=== PATIENT | female | born 1940 | race Caucasian/White ===

== ENCOUNTER 2018-05-16 17:43 | Emergency (ER) | payer BC, MEDICARE ==
--- OUTSIDE RECORDS SUMMARY | 2018-05-16 18:00 | XMS REPORT ---
:1940 External Reference #:[id number] Author Organization [facility] Address [address], [address] [place] [address] Phone [phone] Care Team Providers Name Role Phone Missael Lala DO Care Team Information Supply Manager Unavailable Kizzy Pinzon, ENGINEER PROCESS Primary Care Physician Unavailable Payers Type Date Identification Numbers Payment Provider Subscriber Commercial Effective: Policy Number: [id number] Preston Tobar 2015 Expires: 2016 PayID: [id number] [address] [address] [place] [address] Medigap Part B Effective: Policy Number: [employer] Elsie Gould 2016 [id number] PayID: [id number] [address] [address] [place] [address] Problems Date Description Provider Status Onset: 05/25/2017 External constriction of left ring finger, JOSH Bradshaw Active initial encounter Onset: 05/24/2017 Closed fracture of distal end of radius JOSH Bradshaw Active Onset: 05/24/2017 Closed fracture of distal end of ulna JOSH Bradshaw Active Family History Date Family Member(s) Problem(s) Comments Father Kidney Disease Mother Mitral Valve Prolapse Social History Type Date Description Comments Marital Status Occupation Retired Cigarette Use Former Cigarette Smoker 1 Pack SMOKED FOR 15 YEARS BUT Daily QUIT OVER 30 YEARS AGO . ETOH Use Denies alcohol use Recreational Drug Use Denies Drug Use Smoking Patient is a former smoker Daily Caffeine Current Caffeine User Soda and Coffee Exercise Type/Frequency Exercises rarely Allergies, Adverse Reactions, Alerts Date Description Reaction Status Severity Comments 05/24/2017 NKDA active Medications Medication Date Status Form Strength Qnty SIG Indications Ordering Provider Spiriva / Active Capsules 18mcg Inhale The Unknown Handihaler 0000 Contents Of One Capsule Via Handihaler By Mouth Every Day Ventolin HFA / Active Aerosol 108(90Base 8gm inhale two Steve 0000 ) mcg/Act puffs by MD Mariana mouth every 6 hours as needed for shortness of breath. Magnesium Oxide / Active Tablets 400(241.3M Take One Unknown 0000 g) mg Tablet By Mouth Every Day Amitriptyline / Active Tablets 100mg Take One Unknown HCL 0000 Tablet By Mouth AT Bedtime Sumatriptan / Active Tablets 100mg 1 po as Spike, Succinate 0000 needed for Missael migranes. C, DO Multi Vitamin / Active Tablets 1 by mouth Unknown 0000 every day Vitamin D3 / Active Chewtabs 1000Unit chew 1 tab Unknown 0000 by mouth daily for 8 weeks Ibuprofen / Active Capsules 200mg as needed Unknown 0000 Omeprazole / Active Capsules 20mg 1 by mouth Unknown 0000 DR every day Preservision / Active Capsules 2 by mouth Unknown Areds 0000 daily Propranolol HCL / Active Tablets 20mg take one Unknown 0000 tablet by mouth daily Amlodipine / Active Tablets 5mg 1 by mouth Unknown Besylate 0000 every day Excedrin / Active Tablets 250-250-65 1 tab by Unknown Migraine 0000 mg mouth first sign of migraine Hydrocodone-Gagandeep / Hx Tablets 5-325mg Unknown taminophen 0000 - 2016 Vital Signs Date Vital Result Comment 04/17/2018 BP Systolic Sitting Left Arm 110 mmHg BP Diastolic Sitting Left Arm 78 mmHg Heart Rate 73 /min Respiratory Rate 16 /min Height 66.5 inches 5'6.50" Weight 143.00 lb BMI (Body Mass Index) 22.7 kg/m2 BSA (Body Surface Area) 1.74 m2 [place] body weight in kilograms 60 O2 Saturation Level with Exercise 91 % 05/24/2017 BP Systolic Sitting Right Arm 122 mmHg BP Diastolic Sitting Right Arm 73 mmHg Heart Rate 96 /min Height 66.5 inches 5'6.50" Weight 187.00 lb BMI (Body Mass Index) 29.7 kg/m2 BSA (Body Surface Area) 1.95 m2 [place] body weight in kilograms 60 Results Test Date Test Result H/L Range Note Continuous Oximetry 03/27/2018 Oximetry 91 % Low 93-98 1 Fio2 21 21-100 1 Heart Rate 117 BPM 1 Patient Status AMBULATING 1 Continuous Oximetry 03/27/2018 Oximetry 91 % Low 93-98 1 Fio2 21 21-100 1 Heart Rate 78 BPM 1 Patient Status RESTING 1 Patient Position SITTING UP IN BE <SEE NOTE> 1, 2 Laboratory test finding 03/27/2018 NT-proBNP 214.0 pg/mL <450 1 CBC 03/26/2018 White Blood Count 19.9 K/uL High 3.1-10.7 1 Red Blood Count 4.56 M/uL 3.90-5.40 1 Hemoglobin 12.7 gm/dL 11.6-15.8 1 Hematocrit 40.8 % 36.0-46.1 1 Mean Cell Volume 89.5 fl 80.9-99.0 1 Mean Corpuscular HGB 27.9 pg 25.9-32.7 1 Mean Corpuscular HGB Conc 31.1 g/dL 30.8-34.3 1 Platelet Count 463 K/uL High 155-360 1 Red Cell Distri Width %CV 14.2 % 11.7-14.4 1 Mean Platelet Volume 9.3 fL 8.9-12.4 1 Basic Metabolic Panel 03/26/2018 Glucose 135 mg/dL High 74-106 1 BUN 20 mg/dL High 7-18 1 Creatinine 0.7 mg/dL 0.6-1.3 1 Glom Filtration Rate, Estimate >60 mL/min >60 1 If >60 mL/min >60 1, 3 BUN/Creat 28.5 ratio 1 Sodium 134 mmol/L Low 136-145 1 Potassium 4.3 mmol/L 3.5-5.1 1 Chloride 96 mmol/L Low 98-107 1 Carbon Dioxide 31 mmol/L 21-32 1 Anion Gap 7 mEq/L Low 8-16 1 Calcium 8.9 mg/dL 8.5-10.1 1 Laboratory test finding 03/26/2018 Magnesium 2.4 mg/dL 1.8-2.4 1 CBC 03/25/2018 White Blood Count 19.5 K/uL High 3.1-10.7 1 Red Blood Count 4.57 M/uL 3.90-5.40 1 Hemoglobin 12.8 gm/dL 11.6-15.8 1 Hematocrit 41.5 % 36.0-46.1 1 Mean Cell Volume 90.8 fl 80.9-99.0 1 Mean Corpuscular HGB 28.0 pg 25.9-32.7 1 Mean Corpuscular HGB Conc 30.8 g/dL 30.8-34.3 1 Platelet Count 413 K/uL High 155-360 1 Red Cell Distri Width %CV 14.4 % 11.7-14.4 1 Mean Platelet Volume 9.5 fL 8.9-12.4 1 Basic Metabolic Panel 03/25/2018 Glucose 135 mg/dL High 74-106 1 BUN 20 mg/dL High 7-18 1 Creatinine 0.6 mg/dL 0.6-1.3 1 Glom Filtration Rate, Estimate >60 mL/min >60 1 If >60 mL/min >60 1, 4 BUN/Creat 33.3 ratio 1 Sodium 134 mmol/L Low 136-145 1 Potassium 4.2 mmol/L 3.5-5.1 1 Chloride 96 mmol/L Low 98-107 1 Carbon Dioxide 31 mmol/L 21-32 1 Anion Gap 7 mEq/L Low 8-16 1 Calcium 9.1 mg/dL 8.5-10.1 1 Laboratory test finding 03/25/2018 Magnesium 2.4 mg/dL 1.8-2.4 1 Continuous Oximetry 03/24/2018 Oximetry 93 % 93-98 1 O2l/Min 2 L/min 1 Oximetry Delivery N/C 1 Heart Rate 82 BPM 1 Patient Status RESTING 1 Patient Position SITTING UP IN BE <SEE NOTE> 1, 5 Iga Subclasses 03/24/2018 IgA1 262.0 mg/dL 73.2-301.2 1 IgA2 39.5 mg/dL 13.4-97.9 1, 6 Immunoglobulins A/G/M, QN, 03/24/2018 Immunoglobulin 705 mg/dL 700-1600 1 Ser G,Quant,Serum Immunoglobulin A 302 mg/dL 64-422 1 Immunoglobulin M 77 mg/dL 26-217 1 Igg Subclasses (1-4) 03/24/2018 Immunoglobulin G,Quant,Serum 677 mg/dL Low 700-1600 1 Immunoglobulin G Subclass 1 405 mg/dL 248-810 1 Immunoglobulin G Subclass 2 178 mg/dL 130-555 1 Immunoglobulin G Subclass 3 126 mg/dL High 15-102 1 Immunoglobulin G Subclass 4 9 mg/dL 2-96 1, 7 CBC 03/24/2018 White Blood Count 17.8 K/uL High 3.1-10.7 1 Red Blood Count 4.29 M/uL 3.90-5.40 1 Hemoglobin 12.0 gm/dL 11.6-15.8 1 Hematocrit 38.8 % 36.0-46.1 1 Mean Cell Volume 90.4 fl 80.9-99.0 1 Mean Corpuscular HGB 28.0 pg 25.9-32.7 1 Mean Corpuscular HGB Conc 30.9 g/dL 30.8-34.3 1 Platelet Count 442 K/uL High 155-360 1 Red Cell Distri Width %CV 14.4 % 11.7-14.4 1 Mean Platelet Volume 9.6 fL 8.9-12.4 1 Laboratory test finding 03/24/2018 Magnesium 2.4 mg/dL 1.8-2.4 1 Basic Metabolic Panel 03/24/2018 Glucose 132 mg/dL High 74-106 1 BUN 20 mg/dL High 7-18 1 Creatinine 0.6 mg/dL 0.6-1.3 1 Glom Filtration Rate, Estimate >60 mL/min >60 1 If >60 mL/min >60 1, 8 BUN/Creat 33.3 ratio 1 Sodium 135 mmol/L Low 136-145 1 Potassium 4.3 mmol/L 3.5-5.1 1 Chloride 97 mmol/L Low 98-107 1 Carbon Dioxide 33 mmol/L High 21-32 1 Anion Gap 5 mEq/L Low 8-16 1 Calcium 9.0 mg/dL 8.5-10.1 1 Continuous Oximetry 03/24/2018 Oximetry 91 % Low 93-98 1 Fio2 21 21-100 1 Heart Rate 88 BPM 1 Patient Status RESTING 1 Patient Position SITTING UP IN BE <SEE NOTE> 1, 9 Continuous Oximetry 03/24/2018 Oximetry 85 % Low 93-98 1 Fio2 21 21-100 1 Heart Rate 86 BPM 1 Patient Status AMBULATING 1 Patient Position SITTING UP IN BE <SEE NOTE> 1, 10 CBC 03/23/2018 White Blood Count 12.8 K/uL High 3.1-10.7 1 Red Blood Count 4.29 M/uL 3.90-5.40 1 Hemoglobin 12.0 gm/dL 11.6-15.8 1 Hematocrit 38.6 % 36.0-46.1 1 Mean Cell Volume 90.0 fl 80.9-99.0 1 Mean Corpuscular HGB 28.0 pg 25.9-32.7 1 Mean Corpuscular HGB Conc 31.1 g/dL 30.8-34.3 1 Platelet Count 394 K/uL High 155-360 1 Red Cell Distri Width %CV 14.3 % 11.7-14.4 1 Mean Platelet Volume 9.8 fL 8.9-12.4 1 Basic Metabolic Panel 03/23/2018 Glucose 140 mg/dL High 74-106 1 BUN 15 mg/dL 7-18 1 Creatinine 0.6 mg/dL 0.6-1.3 1 Glom Filtration Rate, Estimate >60 mL/min >60 1 If >60 mL/min >60 1, 11 BUN/Creat 25.0 ratio 1 Sodium 135 mmol/L Low 136-145 1 Potassium 4.2 mmol/L 3.5-5.1 1 Chloride 98 mmol/L 98-107 1 Carbon Dioxide 28 mmol/L 21-32 1 Anion Gap 9 mEq/L 8-16 1 Calcium 9.2 mg/dL 8.5-10.1 1 Laboratory test 03/23/2018 Magnesium 2.3 mg/dL 1.8-2.4 1 finding Laboratory test 03/22/2018 Legionella Urinary Negative Negative 1, 12 finding Antigen Blood Culture 03/22/2018 Blood Culture NO GROWTH: FINAL 1, 13 Aerobic <SEE NOTE> Blood Culture Anaerobic NO GROWTH: FINAL <SEE NOTE> 1, 14 Blood Culture 03/22/2018 Blood Culture Aerobic NO GROWTH: FINAL <SEE NOTE> 1, 15 Blood Culture Anaerobic NO GROWTH: FINAL <SEE NOTE> 1, 16 1 COPD EXACERBATION AND PNA 2 SITTING UP IN BED 3 Note: Persistent reduction for 3 months or more in an eGFR <60 mL/min/1.73 m2 defines CKD. Patients with eGFR values >/=60 mL/min/1.73 m2 may also have CKD if evidence of persistent proteinuria is present. The original MDRD equation for estimated GFR is not valid for patients less than 18 years of age. Additional information may be found at www.[facility].org. 4 Note: Persistent reduction for 3 months or more in an eGFR <60 mL/min/1.73 m2 defines CKD. Patients with eGFR values >/=60 mL/min/1.73 m2 may also have CKD if evidence of persistent proteinuria is present. The original MDRD equation for estimated GFR is not valid for patients less than 18 years of age. Additional information may be found at www.[email or web address]. 5 SITTING UP IN BED 6 Performed at: [facility] [id number] Flour Inspector: Reanna Diaz MD, Phone: [phone] Performed at: [facility] [id number] Flour Inspector: Wali Diane MD, Phone: [phone] Performed at: [facility] [address] [id number] Flour Inspector: Reanna Diaz MD, Phone: [phone] Performed at: [facility] [id number] Flour Inspector: Wali Diane MD, Phone: [phone] Note: Persistent reduction for 3 months or more in an eGFR <60 mL/min/1.73 m2 defines CKD. Patients with eGFR values >/=60 mL/min/1.73 m2 may also have CKD if evidence of persistent proteinuria is present. The original MDRD equation for estimated GFR is not valid for patients less than 18 years of age. Additional information may be found at www.[email or web address]. 9 SITTING UP IN BED 10 SITTING UP IN BED 11 Note: Persistent reduction for 3 months or more in an eGFR <60 mL/min/1.73 m2 defines CKD. Patients with eGFR values >/=60 mL/min/1.73 m2 may also have CKD if evidence of persistent proteinuria is present. The original MDRD equation for estimated GFR is not valid for patients less than 18 years of age. Additional information may be found at [email or web address]. 12 Presumptive negative for L. pneumophila serogroup 1 antigen in urine, suggesting no recent or current infection. Legionnaires' disease cannot be ruled out since other serogroups and species may also cause disease. 13 NO GROWTH: FINAL REPORT 14 NO GROWTH: FINAL REPORT 15 NO GROWTH: FINAL REPORT 16 NO GROWTH: FINAL REPORT Procedures Date CPT Code Description Status 06/29/2017 89500 Radiology, Wrist Complete Completed 06/09/2017 73444 Radiology, Wrist Complete Completed 06/01/2017 17080 Radiology, Wrist Complete Completed 06/01/2017 58154 Radiology, Wrist Complete Completed 06/01/2017 13086 Application of Cast short arm Completed 05/24/2017 66251 Radiology, Wrist Complete Completed 05/24/2017 43608 Radiology, Wrist Complete Completed 05/24/2017 59392 Ulnar styloid fracture closed Completed 05/24/2017 29413 Fracture distal radial-closed Completed Encounters Type Date Location Provider CPT E/M Dx Office Visit 05/25/2017 1:30p Orthopaedic Office JOSH Bradshaw [id number] S52.615D S52.572D S60.445A Plan of Care Future Appointment(s):06/07/2018 2:30 pm - [facility]/02/ 2018 - Steve Peña MDJ44.9 Chronic obstructive pulmonary disease, unspecifiedNew Orders:PFT With BronchodilatorComments:Continue with Spiriva and as needed albuterol. Alpha-1 testing done today as well. We ambulated her today and her oxygen saturations maintained at least 89% on room air. She does not need oxygen at this time.Follow up:6 weeks, AM appointment is ok.J18.9 Pneumonia , unspecified [id number] Pulmonary fibrosis, unspecifiedComments: Differentials include sarcoidosis versus MAC versus other ILD. I want to set her up with a bronchoscopy but first I will repeat a chest x-ray and get PFTs to establish a baseline.
--- OUTSIDE RECORDS SUMMARY | 2018-05-16 18:00 | XMS REPORT ---
:1940 External Reference #:[id number] Author Organization [facility] Address [address] [address] Phone [phone] Care Team Providers Name Role Phone Tunde Pinzon MD Care Team Information Teacher Asst Unavailable Kizzy Pinzon NP Primary Care Physician Unavailable Payers Type Date Identification Numbers Payment Provider Subscriber Commercial Effective: Policy Number: BCBS Medicare Manuel Tobar 2016 [id number] Group Number: [id number] [address] [address] PayID: [id number] [place] [address] Problems Date Description Provider Status Onset: 10/15/2010 Migraine Missael Lala DO Active Onset: 10/15/2010 Vitamin D deficiency Missael Lala DO Active Onset: 10/15/2010 Gastroesophageal reflux disease Missael Lala DO Active Onset: 10/15/2010 Headache Missael Lala DO Active Onset: 04/28/2016 Chronic obstructive lung disease Missael Lala DO Active Onset: 10/21/2014 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 Family History Date Family Member(s) Problem(s) Comments Mother due to Age 94 Old Age () Social History Type Date Description Comments Marital Status Lives With Alone Occupation Retired Hand Dominance RIGHT-handed ETOH Use Denies alcohol use Smoking Patient is a former smoker PREVIOUSLY 2 PPD QUIT OVER 30 YEARS AGO Daily Caffeine Consumes on average 2 cups of coffee per day Allergies, Adverse Reactions, Alerts Date Description Reaction Status Severity Comments 11/01/2014 NKDA active 10/21/2014 Ibuprofen inactive Medications Medication Date Status Form Strength Qnty SIG Indications Ordering Provider Propranolol HCL 01/25/20 Active Tablets 20mg 90tabs 1 by G43.909 Digiovanna, 18 mouth Kizzy, every SOAP GRINDER day Montelukast 10/26/19 Active Tablets 10mg 90tabs 1 by J44.9 Digiovanna, Sodium 18 mouth Kizzy, every SOAP GRINDER day J44.1 Goodsense 05/24/2017 Active Tablets 200mg 200tabs 2 tab three Spike, Ibuprofen times a day Missael, DO as needed Spiriva 10/21/2016 Active Capsules 18mcg 90caps 1 puff by J44.9 Digiovanna, Handihaler mouth every Kizzy, SOAP GRINDER d J44.1 Ventolin HFA 03/18/2016 Active Aerosol 108(90Base) 54gm 2 puffs J44.9 Swift, mcg/Act by mouth Derrick, DO four times a day J44.1 Magnesium 04/20/2013 Active Tablets 400(241.3mg) 90tabs Take One E83.40 Spike, Oxide mg Tablet By Missael, Mouth DO Every Day Sumatriptan 06/25/2010 Active Tablets 100mg 9tabs take one G43.909 Digiovanna Succinate tablet by , mouth at Kizzy, onset of SOAP GRINDER migraine, may repeat in two hours if necessary Omeprazole 05/26/2010 Active Capsules 20mg 90caps take one K21.[address] capsule , by mouth Kizzy, every day SOAP GRINDER Multi-Day 09/02/2009 Active Tablets 1 po qd Spike, Vitamins Missael, DO [facility] Vitamin 09/02/2009 Active Capsules 1000Unit 90caps 1 po qd Spike, D3 Missael, DO Antioxidant Active Capsules 1 by Unknown Formula mouth once a day Preservision Active Tablets 1 by Unknown Areds mouth twice a day Prednisone 03/16/2018 Hx Tablets 20mg 10tabs 2 tablets Swift, - by mouth Derrick, 03/21/2018 for 5 DO days Amitriptylin 01/24/2018 Hx Tablets 25mg 120tabs 2 by G43.909 Digiovanna e HCL - mouth , 04/25/2018 daily in Kizzy, the SOAP GRINDER evening Prednisone 12/19/2017 Hx Tablets 20mg 10tabs 2x/day by J44.1 Digiovanna - mouth for , 12/24/2017 5 days Kizzy, with food SOAP GRINDER Azithromycin 12/19/2017 Hx Tablets 250mg 6tabs 2 by J44.1 Digiovanna - mouth on , 12/24/2017 day 1 and Kizzy, 1 by SOAP GRINDER mouth day 2-5 Levaquin 03/18/2016 Hx Tablets 500mg 10tabs 1 by Spike, - mouth Missael, 04/28/2016 every day DO Azithromycin 03/09/2016 Hx Tablets 250mg 6tabs 2 by J06.9 Digiovanna - mouth on , 03/14/2016 day 1 and Kizzy, 1 by SOAP GRINDER mouth day 2-5 Prednisone 03/09/2016 Hx Tablets 20mg 10tabs 2x/day by J06.9 Digiovanna - mouth for , 03/14/2016 5 days Kizzy, SOAP GRINDER Tessalon 10/29/2015 Hx Capsules 200mg 30caps 1 by Spike, - mouth Missael, 12/16/2015 three DO times a day Zithromax 10/22/2015 Hx Tablets 500mg 7tabs 1 by J20.9 Spike, - mouth Missael, 12/16/2015 every day DO Amoxicillin/ 03/18/2015 Hx Tablets 875-125mg 20tabs 1 by 465.9 Digiovanna Clavulanate - mouth , Potassium 03/28/2015 every 12 Kizzy, hours for SOAP GRINDER 10 days Amitriptylin 10/19/2012 Hx Tablets 100mg 90tabs take one G43.909 Digiovanna e HCL - tablet by , 01/24/2018 mouth Kizzy, once SOAP GRINDER daily at bedtime Goodsense Hx Tablets 200mg 2 tab Unknown Ibuprofen - three 07/12/2017 times a day as needed Medications Administered in Office Medication Date Status Form Strength Qnty SIG Indications Ordering Provider Depo Medrol 80 Administered Injection Spike MG 016 DO Missael Immunizations CPT Code Status Date Vaccine Reaction Lot # [id number] Given 10/21/2016 Pneumococcal 23 Immunization Im inj completed, Pt [id number] Adult Or Immunosuppressed tolerated well Patient 03775 Given 10/22/2015 Prevnar 13 Pneumococal Im inj completed, Pt [id number] Conjugate Vaccine tolerated well 02046 Refused 10/03/2017 Influenza Vac, 3 Yrs & Older, Quadrivalent, Split, Im Use Vital Signs Date Vital Result Comment 04/25/2018 Weight 142.00 lb Heart Rate 80 /min BP Systolic 120 mmHg BP Diastolic 70 mmHg Respiratory Rate 18 /min Height 64.5 inches 5'4.50" 04/25/18 SA,DIRECTOR [employer] O2 % BldC Oximetry 93 % Room Air BMI (Body Mass Index) 24.0 kg/m2 03/30/2018 Body Temperature 97.3 F Weight 151.00 lb Heart Rate 64 /min BP Systolic 130 mmHg BP Diastolic 72 mmHg Respiratory Rate 20 /min Height 65 inches 5'5" 07/12/17 SA O2 % BldC Oximetry 92 % BMI (Body Mass Index) 25.1 kg/m2 03/22/2018 Weight 150.00 lb Heart Rate 103 /min BP Systolic 140 mmHg BP Diastolic 90 mmHg Height 65 inches 5'5" 07/12/17 SA O2 % BldC Oximetry 83 % BMI (Body Mass Index) 25.0 kg/m2 03/16/2018 Body Temperature 98.3 F Ibuprofen This Am Weight 153.00 lb Heart Rate 90 /min BP Systolic 150 mmHg BP Diastolic 90 mmHg Respiratory Rate 20 /min Height 65 inches 5'5" 07/12/17 SA O2 % BldC Oximetry 85 % BMI (Body Mass Index) 25.5 kg/m2 02/21/2018 Weight 150.25 lb Heart Rate 76 /min BP Systolic 130 mmHg BP Diastolic 80 mmHg Respiratory Rate 18 /min Height 65 inches 5'5" 07/12/17 SA O2 % BldC Oximetry 91 % Room Air BMI (Body Mass Index) 25.0 kg/m2 01/24/2018 Body Temperature 98.1 F tympanic Weight 154.00 lb Heart Rate 96 /min BP Systolic 130 mmHg BP Diastolic 94 mmHg Respiratory Rate 16 /min Height 65 inches 5'5" 07/12/17 SA O2 % BldC Oximetry 93 % On room air BMI (Body Mass Index) 25.6 kg/m2 12/19/2017 Body Temperature 98.2 F tympanic Weight 154.00 lb Heart Rate 88 /min BP Systolic 134 mmHg BP Diastolic 94 mmHg BP Systolic Recheck 144 mmHg BP Diastolic Recheck 98 mmHg Respiratory Rate 20 /min Height 65 inches 5'5" 07/12/17 O2 % BldC Oximetry 91 % On room air BMI (Body Mass Index) 25.6 kg/m2 10/26/2017 Weight 156.00 lb Heart Rate 108 /min BP Systolic 140 mmHg BP Diastolic 90 mmHg BP Systolic Recheck 132 mmHg BP Diastolic Recheck 88 mmHg Respiratory Rate 16 /min Height 65 inches 5'5" 07/12/17 BMI (Body Mass Index) 26.0 kg/m2 10/03/2017 Weight 158.00 lb Heart Rate 90 /min BP Systolic 180 mmHg BP Diastolic 98 mmHg Respiratory Rate 18 /min Height 65 inches 5'5" 07/12/17 BMI (Body Mass Index) 26.3 kg/m2 09/20/2017 Weight 154.38 lb Heart Rate 84 /min BP Systolic 126 mmHg BP Diastolic 80 mmHg Respiratory Rate 18 /min Height 65 inches 5'5" 07/12/17 BMI (Body Mass Index) 25.7 kg/m2 07/12/2017 Weight 160.25 lb Heart Rate 92 /min 80 Reg BP Systolic 122 mmHg BP Diastolic 76 mmHg BP Systolic Recheck 110 mmHg BP Diastolic Recheck 76 mmHg Respiratory Rate 18 /min Height 65 inches 5'5" 07/12/17 BMI (Body Mass Index) 26.7 kg/m2 05/24/2017 Weight 157.44 lb Heart Rate 80 /min BP Systolic 122 mmHg BP Diastolic 78 mmHg Respiratory Rate 18 /min Height 65 inches 5'5" BMI (Body Mass Index) 26.2 kg/m2 04/25/2017 Weight 159.00 lb Heart Rate 82 /min 80 Reg BP Systolic 116 mmHg BP Diastolic 78 mmHg BP Systolic Recheck 120 mmHg BP Diastolic Recheck 72 mmHg Respiratory Rate 18 /min Height 65 inches 5'5" BMI (Body Mass Index) 26.5 kg/m2 10/21/2016 Weight 158.00 lb Heart Rate 72 /min 72 Reg BP Systolic 138 mmHg BP Diastolic 80 mmHg BP Systolic Recheck 138 mmHg BP Diastolic Recheck 80 mmHg Respiratory Rate 18 /min Height 65 inches 5'5" O2 % BldC Oximetry 91 % Ra BMI (Body Mass Index) 26.3 kg/m2 04/28/2016 Weight 156.00 lb Heart Rate 66 /min 68 Reg BP Systolic 130 mmHg BP Diastolic 80 mmHg BP Systolic Recheck 130 mmHg BP Diastolic Recheck 80 mmHg Respiratory Rate 18 /min 03/18/2016 Weight 155.00 lb Heart Rate 78 /min BP Systolic 130 mmHg BP Diastolic 90 mmHg Respiratory Rate 24 /min Height 64.75 inches 5'4.75" O2 % BldC Oximetry 94 % Ra BMI (Body Mass Index) 26.0 kg/m2 03/09/2016 Body Temperature 98.2 F Weight 158.00 lb Heart Rate 94 /min BP Systolic 146 mmHg L/Reg BP Diastolic 86 mmHg L/Reg Respiratory Rate 17 /min Height 64.75 inches 5'4.75" O2 Saturation Level with Exercise 93 % Ra// BMI (Body Mass Index) 26.5 kg/m2 10/22/2015 Weight 155.00 lb Heart Rate 66 /min 80 Reg BP Systolic 150 mmHg BP Diastolic 82 mmHg BP Systolic Recheck 134 mmHg BP Diastolic Recheck 80 mmHg Respiratory Rate 18 /min Height 64.75 inches 5'4.75" BMI (Body Mass Index) 26.0 kg/m2 04/21/2015 Weight 168.00 lb Heart Rate 66 /min 80 Reg BP Systolic 130 mmHg BP Diastolic 80 mmHg BP Systolic Recheck 124 mmHg BP Diastolic Recheck 80 mmHg Respiratory Rate 18 /min Height 65.25 inches 5'5.25" BMI (Body Mass Index) 27.7 kg/m2 03/18/2015 Body Temperature 97.9 F Weight 159.00 lb Heart Rate 90 /min BP Systolic 122 mmHg BP Diastolic 74 mmHg Height 65.25 inches 5'5.25" O2 % BldC Oximetry 92 % Ra BMI (Body Mass Index) 26.3 kg/m2 10/21/2014 Weight 157.00 lb Heart Rate 72 /min 80 Reg BP Systolic 130 mmHg BP Diastolic 90 mmHg BP Systolic Recheck 124 mmHg BP Diastolic Recheck 86 mmHg Respiratory Rate 18 /min Height 65.25 inches 5'5.25" BMI (Body Mass Index) 25.9 kg/m2 08/26/2014 Weight 157.00 lb Heart Rate 66 /min BP Systolic 130 mmHg BP Diastolic 72 mmHg Respiratory Rate 18 /min 05/09/2014 Weight 157.00 lb Heart Rate 80 /min BP Systolic 122 mmHg BP Diastolic 80 mmHg Respiratory Rate 18 /min Height 65.75 inches 5'5.75" 04/22/2014 Weight 158.00 lb Heart Rate 72 /min BP Systolic 128 mmHg BP Diastolic 80 mmHg Respiratory Rate 18 /min Height 65.75 inches 5'5.75" 04/09/2014 Body Temperature 98.1 F Weight 158.12 lb Heart Rate 88 /min BP Systolic 124 mmHg BP Diastolic 88 mmHg Respiratory Rate 18 /min 10/22/2013 BP Systolic 120 mmHg BP Diastolic 78 mmHg 10/22/2013 Weight 158.00 lb Heart Rate 72 /min 80 Reg BP Systolic 124 mmHg BP Diastolic 70 mmHg Respiratory Rate 18 /min 04/20/2013 BP Systolic 118 mmHg BP Diastolic 78 mmHg 04/20/2013 Weight 156.00 lb Heart Rate 60 /min 72 Reg BP Systolic 110 mmHg BP Diastolic 70 mmHg Respiratory Rate 18 /min 01/09/2013 Body Temperature 97.9 F Weight 159.00 lb Heart Rate 88 /min BP Systolic 126 mmHg BP Diastolic 86 mmHg Respiratory Rate 18 /min O2 % BldC Oximetry 98 % 10/19/2012 BP Systolic 120 mmHg BP Diastolic 80 mmHg 10/19/2012 Weight 157.00 lb Heart Rate 72 /min 72 Reg BP Systolic 118 mmHg BP Diastolic 80 mmHg Respiratory Rate 24 /min 05/23/2012 Weight 149.00 lb Heart Rate 66 /min BP Systolic 122 mmHg BP Diastolic 66 mmHg Respiratory Rate 18 /min 04/18/2012 BP Systolic 124 mmHg BP Diastolic 78 mmHg 04/18/2012 Weight 154.00 lb Heart Rate 72 /min 80 Reg BP Systolic 130 mmHg BP Diastolic 78 mmHg Respiratory Rate 18 /min 01/19/2012 Body Temperature 99.6 F Weight 156.12 lb Heart Rate 96 /min BP Systolic 124 mmHg BP Diastolic 82 mmHg Respiratory Rate 18 /min Height 65.5 inches 5'5.50"/ O2 % BldC Oximetry 93 % 10/19/2011 BP Systolic 110 mmHg BP Diastolic 78 mmHg 10/19/2011 Weight 157.00 lb Heart Rate 60 /min 72 Reg BP Systolic 108 mmHg BP Diastolic 78 mmHg Respiratory Rate 18 /min Height 65.5 inches 5'5.50" 07/26/2011 Weight 155.06 lb Heart Rate 76 /min BP Systolic 128 mmHg BP Diastolic 88 mmHg Respiratory Rate 18 /min Height 65.5 inches 5'5.50" 11 O2 % BldC Oximetry 96 % 06/22/2011 Body Temperature 97.8 F Weight 155.00 lb Heart Rate 90 /min BP Systolic 112 mmHg BP Diastolic 80 mmHg Respiratory Rate 18 /min Height 65.5 inches 5'5.50" 02/20/11 O2 % BldC Oximetry 92 % Ra 06/08/2011 Body Temperature 98.8 F Weight 153.00 lb Heart Rate 100 /min BP Systolic 120 mmHg BP Diastolic 82 mmHg Respiratory Rate 20 /min Height 65.5 inches 5'5.50" O2 % BldC Oximetry 93 % Ra 04/15/2011 BP Systolic 120 mmHg BP Diastolic 70 mmHg 04/15/2011 Weight 154.00 lb Heart Rate 62 /min 72 Reg BP Systolic 122 mmHg BP Diastolic 78 mmHg Respiratory Rate 14 /min Height 65.5 inches 5'5.50" 02/20/2011 Body Temperature 99.5 F Weight 155.00 lb Heart Rate 98 /min BP Systolic 124 mmHg BP Diastolic 76 mmHg Respiratory Rate 19 /min Height 65.5 inches 5'5.50" O2 % BldC Oximetry 93 % Ra 10/15/2010 BP Systolic 120 mmHg BP Diastolic 80 mmHg 10/15/2010 Weight 157.00 lb Heart Rate 78 /min BP Systolic 128 mmHg BP Diastolic 82 mmHg Respiratory Rate 18 /min 07/16/2010 Weight 152.00 lb Heart Rate 66 /min BP Systolic 128 mmHg BP Diastolic 82 mmHg Respiratory Rate 18 /min 06/02/2010 Weight 148.00 lb Heart Rate 78 /min BP Systolic 128 mmHg BP Diastolic 78 mmHg Respiratory Rate 18 /min 05/26/2010 Weight 145.00 lb Heart Rate 82 /min BP Systolic 118 mmHg L/LG BP Diastolic 82 mmHg L/LG Respiratory Rate 17 /min 09/02/2009 Body Temperature 98.6 F Weight 152.00 lb Heart Rate 78 /min BP Systolic 124 mmHg BP Diastolic 68 mmHg Respiratory Rate 24 /min 11/06/2008 Body Temperature 98.0 F Weight 153.00 lb Heart Rate 88 /min BP Systolic 128 mmHg BP Diastolic 80 mmHg Respiratory Rate 14 /min O2 % BldC Oximetry 92 % RM Air 05/01/2008 Body Temperature 98.5 F Weight 147.31 lb Heart Rate 80 /min BP Systolic 106 mmHg BP Diastolic 70 mmHg Respiratory Rate 18 /min O2 % BldC Oximetry 95 % 11/02/2007 Body Temperature 97.5 F Weight 151.00 lb Heart Rate 78 /min BP Systolic 126 mmHg BP Diastolic 66 mmHg Respiratory Rate 18 /min 03/07/2007 Weight 147.00 lb Heart Rate 72 /min BP Systolic 112 mmHg BP Diastolic 70 mmHg Respiratory Rate 18 /min 02/07/2007 BP Systolic 78 mmHg 02/07/2007 Weight 144.00 lb BP Systolic 110 mmHg BP Diastolic 72 mmHg Respiratory Rate 18 /min 01/10/2007 Weight 146.00 lb Heart Rate 72 /min BP Systolic 132 mmHg BP Diastolic 80 mmHg 09/07/2006 Body Temperature 97.0 F Weight 145.00 lb Heart Rate 80 /min BP Systolic 120 mmHg BP Diastolic 84 mmHg Respiratory Rate 16 /min O2 % BldC Oximetry 93 % Room Air @ Rest 08/24/2006 Body Temperature 97.6 F Weight 149.00 lb Heart Rate 72 /min BP Systolic 114 mmHg BP Diastolic 68 mmHg O2 % BldC Oximetry 91 % Recheck 94-95% Ra 09/07/2005 Body Temperature 97.9 F Weight 150.00 lb Heart Rate 96 /min BP Systolic 118 mmHg BP Diastolic 78 mmHg Respiratory Rate 18 /min O2 % BldC Oximetry 97 % Results Test Date Test Result H/L Range Note Laboratory test finding 04/18/2018 Vitamin D 25 Hydroxy 32 ng/mL 30-100 1 Magnesium 2.0 mg/dL 1.5-2.7 Basic (BMP) 04/18/2018 Sodium 137 mmol/L 135-146 2 Potassium 4.0 mmol/L 3.5-5.2 Chloride# 101 mmol/L 97-110 3 Carbon Dioxide 29 mmol/L 24-34 Glucose 99 mg/dL 70-105 BUN 15 mg/dL 6-26 Creatinine 0.7 mg/dL 0.5-1.4 Calcium 9.0 mg/dL 8.5-10.2 Non Sandhya Egfr >60 >60 4 Sandhya Egfr >60 >60 5 Anion Gap 7 mmol/L 5-15 6 CBC With Auto Diff 04/18/2018 WBC 4.8 K/uL 4.1-11.0 RBC 4.75 M/uL 4.00-5.40 Hemoglobin 13.2 gm/dL 12.0-16.0 Hematocrit 40.7 % 36.0-47.0 MCV 85.7 fL 80.0-97.0 MCH 27.8 pg 27.0-32.0 MCHC 32.4 g/dL 32.0-36.0 RDW 16.4 % High 11.5-14.5 PLT Count 275 K/ul 140-400 MPV 7.9 FL 7.1-10.7 Neutrophil 60.5 % 35.0-75.0 Lymphocyte 23.0 % 16.0-52.0 Monocyte 8.7 % 2.0-10.0 Eosinophil 6.9 % High 0.0-5.0 Basophil 0.9 % 0.0-4.0 Abs Neutrophils 2.9 K/uL 2.1-8.0 Abs Lymphocytes 1.1 K/uL 0.8-5.5 Abs Monocytes 0.4 K/uL 0.1-1.0 Abs Eosinophils 0.3 K/uL 0.0-0.5 Abs Basophils 0.0 K/uL 0.0-0.3 Continuous Oximetry 03/27/2018 Oximetry 91 % Low 93-98 7 Fio2 21 21-100 7 Heart Rate 117 BPM 7 Patient Status AMBULATING 7 Continuous Oximetry 03/27/2018 Oximetry 91 % Low 93-98 7 Fio2 21 21-100 7 Heart Rate 78 BPM 7 Patient Status RESTING 7 Patient Position SITTING UP IN BE <SEE NOTE> 7, 8 Laboratory test finding 03/27/2018 NT-proBNP 214.0 pg/mL <450 7 CBC 03/26/2018 White Blood Count 19.9 K/uL High 3.1-10.7 7 Red Blood Count 4.56 M/uL 3.90-5.40 7 Hemoglobin 12.7 gm/dL 11.6-15.8 7 Hematocrit 40.8 % 36.0-46.1 7 Mean Cell Volume 89.5 fl 80.9-99.0 7 Mean Corpuscular HGB 27.9 pg 25.9-32.7 7 Mean Corpuscular HGB Conc 31.1 g/dL 30.8-34.3 7 Platelet Count 463 K/uL High 155-360 7 Red Cell Distri Width %CV 14.2 % 11.7-14.4 7 Mean Platelet Volume 9.3 fL 8.9-12.4 7 Basic Metabolic Panel 03/26/2018 Glucose 135 mg/dL High 74-106 7 BUN 20 mg/dL High 7-18 7 Creatinine 0.7 mg/dL 0.6-1.3 7 Glom Filtration Rate, Estimate >60 mL/min >60 7 If >60 mL/min >60 7, 9 BUN/Creat 28.5 ratio 7 Sodium 134 mmol/L Low 136-145 7 Potassium 4.3 mmol/L 3.5-5.1 7 Chloride 96 mmol/L Low 98-107 7 Carbon Dioxide 31 mmol/L 21-32 7 Anion Gap 7 mEq/L Low 8-16 7 Calcium 8.9 mg/dL 8.5-10.1 7 Laboratory test finding 03/26/2018 Magnesium 2.4 mg/dL 1.8-2.4 7 CBC 03/25/2018 White Blood Count 19.5 K/uL High 3.1-10.7 7 Red Blood Count 4.57 M/uL 3.90-5.40 7 Hemoglobin 12.8 gm/dL 11.6-15.8 7 Hematocrit 41.5 % 36.0-46.1 7 Mean Cell Volume 90.8 fl 80.9-99.0 7 Mean Corpuscular HGB 28.0 pg 25.9-32.7 7 Mean Corpuscular HGB Conc 30.8 g/dL 30.8-34.3 7 Platelet Count 413 K/uL High 155-360 7 Red Cell Distri Width %CV 14.4 % 11.7-14.4 7 Mean Platelet Volume 9.5 fL 8.9-12.4 7 Basic Metabolic Panel 03/25/2018 Glucose 135 mg/dL High 74-106 7 BUN 20 mg/dL High 7-18 7 Creatinine 0.6 mg/dL 0.6-1.3 7 Glom Filtration Rate, Estimate >60 mL/min >60 7 If >60 mL/min >60 7, 10 BUN/Creat 33.3 ratio 7 Sodium 134 mmol/L Low 136-145 7 Potassium 4.2 mmol/L 3.5-5.1 7 Chloride 96 mmol/L Low 98-107 7 Carbon Dioxide 31 mmol/L 21-32 7 Anion Gap 7 mEq/L Low 8-16 7 Calcium 9.1 mg/dL 8.5-10.1 7 Laboratory test finding 03/25/2018 Magnesium 2.4 mg/dL 1.8-2.4 7 Iga Subclasses 03/24/2018 IgA1 262.0 mg/dL 73.2-301.2 7 IgA2 39.5 mg/dL 13.4-97.9 7, 11 Immunoglobulins A/G/M, QN, 03/24/2018 Immunoglobulin 705 mg/dL 700-1600 7 Ser G,Quant,Serum Immunoglobulin A 302 mg/dL 64-422 7 Immunoglobulin M 77 mg/dL 26-217 7 Igg Subclasses (1-4) 03/24/2018 Immunoglobulin G,Quant,Serum 677 mg/dL Low 700-1600 7 Immunoglobulin G Subclass 1 405 mg/dL 248-810 7 Immunoglobulin G Subclass 2 178 mg/dL 130-555 7 Immunoglobulin G Subclass 3 126 mg/dL High 15-102 7 Immunoglobulin G Subclass 4 9 mg/dL 2-96 7, 12 CBC 03/24/2018 White Blood Count 17.8 K/uL High 3.1-10.7 7 Red Blood Count 4.29 M/uL 3.90-5.40 7 Hemoglobin 12.0 gm/dL 11.6-15.8 7 Hematocrit 38.8 % 36.0-46.1 7 Mean Cell Volume 90.4 fl 80.9-99.0 7 Mean Corpuscular HGB 28.0 pg 25.9-32.7 7 Mean Corpuscular HGB Conc 30.9 g/dL 30.8-34.3 7 Platelet Count 442 K/uL High 155-360 7 Red Cell Distri Width %CV 14.4 % 11.7-14.4 7 Mean Platelet Volume 9.6 fL 8.9-12.4 7 Laboratory test finding 03/24/2018 Magnesium 2.4 mg/dL 1.8-2.4 7 Basic Metabolic Panel 03/24/2018 Glucose 132 mg/dL High 74-106 7 BUN 20 mg/dL High 7-18 7 Creatinine 0.6 mg/dL 0.6-1.3 7 Glom Filtration Rate, Estimate >60 mL/min >60 7 If >60 mL/min >60 7, 13 BUN/Creat 33.3 ratio 7 Sodium 135 mmol/L Low 136-145 7 Potassium 4.3 mmol/L 3.5-5.1 7 Chloride 97 mmol/L Low 98-107 7 Carbon Dioxide 33 mmol/L High 21-32 7 Anion Gap 5 mEq/L Low 8-16 7 Calcium 9.0 mg/dL 8.5-10.1 7 Continuous Oximetry 03/24/2018 Oximetry 91 % Low 93-98 7 Fio2 21 21-100 7 Heart Rate 88 BPM 7 Patient Status RESTING 7 Patient Position SITTING UP IN BE <SEE NOTE> 7, 14 Continuous Oximetry 03/24/2018 Oximetry 85 % Low 93-98 7 Fio2 21 21-100 7 Heart Rate 86 BPM 7 Patient Status AMBULATING 7 Patient Position SITTING UP IN BE <SEE NOTE> 7, 15 Continuous Oximetry 03/24/2018 Oximetry 93 % 93-98 7 O2l/Min 2 L/min 7 Oximetry Delivery N/C 7 Heart Rate 82 BPM 7 Patient Status RESTING 7 Patient Position SITTING UP IN BE <SEE NOTE> 7, 16 Legionella Culture 03/23/2018 Legionella Culture Legionella Speci 7, 17 <SEE NOTE> CBC 03/23/2018 White Blood Count 12.8 K/uL High 3.1-10.7 7 Red Blood Count 4.29 M/uL 3.90-5.40 7 Hemoglobin 12.0 gm/dL 11.6-15.8 7 Hematocrit 38.6 % 36.0-46.1 7 Mean Cell Volume 90.0 fl 80.9-99.0 7 Mean Corpuscular HGB 28.0 pg 25.9-32.7 7 Mean Corpuscular HGB Conc 31.1 g/dL 30.8-34.3 7 Platelet Count 394 K/uL High 155-360 7 Red Cell Distri Width %CV 14.3 % 11.7-14.4 7 Mean Platelet Volume 9.8 fL 8.9-12.4 7 Basic Metabolic Panel 03/23/2018 Glucose 140 mg/dL High 74-106 7 BUN 15 mg/dL 7-18 7 Creatinine 0.6 mg/dL 0.6-1.3 7 Glom Filtration Rate, Estimate >60 mL/min >60 7 If >60 mL/min >60 7, 18 BUN/Creat 25.0 ratio 7 Sodium 135 mmol/L Low 136-145 7 Potassium 4.2 mmol/L 3.5-5.1 7 Chloride 98 mmol/L 98-107 7 Carbon Dioxide 28 mmol/L 21-32 7 Anion Gap 9 mEq/L 8-16 7 Calcium 9.2 mg/dL 8.5-10.1 7 Laboratory test 03/23/2018 Magnesium 2.3 mg/dL 1.8-2.4 7 finding Blood Culture 03/22/2018 Blood Culture NO GROWTH: FINAL 7, 19 Aerobic <SEE NOTE> Blood Culture Anaerobic NO GROWTH: FINAL <SEE NOTE> 7, 20 Lactic Acid 03/22/2018 Lactic Acid 1.6 mmol/L 0.4-1.9 21, 22 Lab Reflex >2.0 for Sepsis? Y 21 Protime 03/22/2018 Protime 13.8 seconds 12.0-14.4 21 Inr 1.1 0.9-1.1 21, 23 Differential-WBC Confirm 03/22/2018 Total Cells Counted 100 #CELLS 21 Metamyelocyte% 1 % 0% 21 Band% 10 % High 0-8 21 Neutrophils% 84 % High 33-73 21 Lymph% 1 % Low 20-42 21 Monocyte% 4 % 0-10 21 Platelet Estimate NORMAL 21 Polychromasia 0-1+ 21 Differential Comment LARGE PLATELETS <SEE NOTE> 21, 24 Slide Review 03/22/2018 Slide Review DIFF ORDERED 21 CBS W/Automated Diff 03/22/2018 White Blood Count 17.6 K/uL High 3.1-10.7 21 Red Blood Count 4.72 M/uL 3.90-5.40 21 Hemoglobin 13.3 gm/dL 11.6-15.8 21 Hematocrit 41.9 % 36.0-46.1 21 Mean Cell Volume 88.8 fl 80.9-99.0 21 Mean Corpuscular HGB 28.2 pg 25.9-32.7 21 Mean Corpuscular HGB Conc 31.7 g/dL 30.8-34.3 21 Platelet Count 400 K/uL High 155-360 21 Red Cell Distri Width SD 45.6 fl 3-47 21 Red Cell Distri Width %CV 14.4 % 11.7-14.4 21 Mean Platelet Volume 9.4 fL 8.9-12.4 21 Neut% 86.6 % High 40.4-72.8 21 Lymph % 5.3 % Low 20.0-42.0 21 [place]on % 8.0 % 4.3-13.2 21 Eo% 0.0 % 0.0-6.6 21 Bas% 0.1 % 0.0-1.1 21 Neut# 15.21 K/uL High 1.8-7.0 21 Lymph # 0.93 K/uL Low 1.0-4.0 21 [place] # 1.41 K/uL High 0.3-0.9 21 Eos # 0.00 K/uL 0.0-0.5 21 Baso # 0.02 K/uL 0.0-0.1 21 Laboratory test finding 03/22/2018 CK 71 U/L 26-192 21 Troponin-I < 0.015 ng/mL 21, 25 Comprehensive Metabolic Panel 03/22/2018 Glucose 120 mg/dL High 74-106 21 BUN 19 mg/dL High 7-18 21 Creatinine 0.7 mg/dL 0.6-1.3 21 Glom Filtration Rate, Estimate >60 mL/min >60 21 If >60 mL/min >60 21, 26 BUN/Creat 27.1 ratio 21 Sodium 134 mmol/L Low 136-145 21 Potassium 3.3 mmol/L Low 3.5-5.1 21 Chloride 94 mmol/L Low 98-107 21 Carbon Dioxide 30 mmol/L 21-32 21 Anion Gap 10 mEq/L 8-16 21 Calcium 9.6 mg/dL 8.5-10.1 21 Total Protein 7.7 g/dL 6.4-8.2 21 Albumin 3.2 g/dL Low 3.4-5.0 21 Globulin 4.5 g/dL High 1.9-4.3 21 Alb/Glob 0.7 ratio 21 Bilirubin,Total 0.3 mg/dL 0.2-1.0 21 Sgot/Ast 44 U/L High 15-37 21 SGPT/Alt 51 U/L 12-78 21 Alkaline Phosphatase 200 U/L High 45-117 21 Blood Culture 03/22/2018 Blood Culture Aerobic NO GROWTH: FINAL <SEE NOTE> 27, 28 Blood Culture Anaerobic NO GROWTH: FINAL <SEE NOTE> 27, 29 Arterial Blood Gas 03/22/2018 Allens Test Performed? YES 30 Arterial Blood Gas pH 7.44 7.35-7.45 30 Arterial Blood Gas Pco2 41 mmHg 35-45 30 Arterial Blood Gas Po2 62 mmHg Low 80-105 30 ABG Hco3 27 mEq/L High 22-26 30 ABG Base Excess 2 mEq/L -2-2 30 ABG O2 Saturation 92 % 90-99 30 Arterial Blood Gas Type OXYGEN 30 Arterial Blood Gas L/M 3 L/MIN 0-20 30 Arterial Blood Gas Del. N/C 30 Arterial Blood Gas Site R.RAD.ART. 30 Laboratory test finding 03/22/2018 Legionella Urinary Negative Negative 31, 32 Antigen CBC With Auto Diff 04/13/2017 WBC 5.9 K/uL 4.1-11.0 33 RBC 4.50 M/uL 4.00-5.40 33 Hemoglobin 12.7 gm/dL 12.0-16.0 33 Hematocrit 40.2 % 36.0-47.0 33 MCV 89.2 fL 80.0-97.0 33 MCH 28.3 pg 27.0-32.0 33 MCHC 31.7 g/dL Low 32.0-36.0 33 RDW 14.9 % High 11.5-14.5 33 PLT Count 264 K/ul 140-400 33 Neutrophil 72.9 % 35.0-75.0 33 Lymphocyte 15.9 % Low 16.0-52.0 33 Monocyte 2.8 % 2.0-10.0 33 Eosinophil 4.4 % 0.0-5.0 33 Basophil 4.0 % 0.0-4.0 33 Abs Neutrophils 4.3 K/uL 2.1-8.0 33 Abs Lymphocytes 0.9 K/uL 0.8-5.5 33 Abs Monocytes 0.2 K/uL 0.1-1.0 33 Abs Eosinophils 0.3 K/uL 0.0-0.5 33 Abs Basophils 0.2 K/uL 0.0-0.3 33 Laboratory test finding 04/13/2017 Vit D,25 Hydroxy 40 ng/mL 31-100 33 Magnesium 2.2 mg/dL 1.5-2.7 33 Basic (BMP) 04/13/2017 Sodium 141 mmol/L 135-146 33, 34 Potassium 4.6 mmol/L 3.5-5.2 33 Chloride# 103 mmol/L 97-110 33, 35 Carbon Dioxide 31 mmol/L 24-34 33 Glucose 92 mg/dL 70-105 33 BUN 19 mg/dL 6-26 33 Creatinine 0.9 mg/dL 0.5-1.4 33 Calcium 9.6 mg/dL 8.5-10.2 33 Non Sandhya Egfr 59 Low >60 33, 36 Sandhya Egfr >60 >60 33, 37 Anion Gap 12 mmol/L 7-16 33, 38 Basic (BMP) 04/21/2016 Sodium 136 mmol/L 134-142 39 Potassium 4.2 mmol/L 3.5-5.2 39 Chloride 103 mmol/L 97-109 39 Carbon Dioxide 29 mmol/L 24-34 39 Glucose 92 mg/dL 70-105 39 BUN 17 mg/dL 6-26 39 Creatinine 0.8 mg/dL 0.5-1.4 39 Calcium 9.2 mg/dL 8.5-10.2 39 Anion Gap 8 mmol/L 6-14 39 Non Sandhya Egfr >60 >60 39, 40 Sandhya Egfr >60 >60 39, 41 CBC With Auto Diff 04/21/2016 WBC 6.6 K/uL 4.1-11.0 39 RBC 4.51 M/uL 4.00-5.40 39 Hemoglobin 12.9 gm/dL 12.0-16.0 39 Hematocrit 39.1 % 36.0-47.0 39 MCV 86.6 fL 80.0-97.0 39 MCH 28.5 pg 27.0-32.0 39 MCHC 32.9 g/dL 32.0-36.0 39 RDW 16.7 % High 11.5-14.5 39 PLT Count 224 K/ul 140-400 39 Neutrophil 71.2 % 35.0-75.0 39 Lymphocyte 19.1 % 16.0-52.0 39 Monocyte 6.5 % 2.0-10.0 39 Eosinophil 2.8 % 0.0-5.0 39 Basophil 0.4 % 0.0-4.0 39 Abs Neutrophils 4.7 K/uL 2.1-8.0 39 Abs Lymphocytes 1.3 K/uL 0.8-5.5 39 Abs Monocytes 0.4 K/uL 0.1-1.0 39 Abs Eosinophils 0.2 K/uL 0.0-0.5 39 Abs Basophils 0.0 K/uL 0.0-0.3 39 Laboratory test finding 04/21/2016 Vit D,25 Hydroxy 43 ng/mL 31-100 39 Magnesium 2.1 mg/dL 1.5-2.7 39 Laboratory test finding 04/14/2015 Vit D,25 Hydroxy 47 ng/mL 31-100 42 Magnesium 2.1 mg/dL 1.5-2.7 42 Basic (BMP) 04/14/2015 Sodium 138 mmol/L 134-142 42 Potassium 4.6 mmol/L 3.5-5.2 42 Chloride 100 mmol/L 97-109 42 Carbon Dioxide 33 mmol/L 24-34 42 Glucose 90 mg/dL 70-105 42 BUN 16 mg/dL 6-26 42 Creatinine 0.8 mg/dL 0.5-1.4 42 Calcium 9.4 mg/dL 8.5-10.2 42 Anion Gap 10 mmol/L 6-14 42 Non Sandhya Egfr >60 >60 42, 43 Sandhya Egfr >60 >60 42, 44 CBC With Auto Diff 04/14/2015 WBC 5.8 K/uL 4.1-11.0 42 RBC 4.68 M/uL 4.00-5.40 42 Hemoglobin 13.2 gm/dL 12.0-16.0 42 Hematocrit 40.2 % 36.0-47.0 42 MCV 86.0 fL 80.0-97.0 42 MCH 28.3 pg 27.0-32.0 42 MCHC 32.8 g/dL 32.0-36.0 42 RDW 16.3 % High 11.5-14.5 42 PLT Count 296 K/ul 140-400 42 Neutrophil 69.1 % 35.0-75.0 42 Lymphocyte 19.0 % 16.0-52.0 42 Monocyte 6.7 % 2.0-10.0 42 Eosinophil 4.1 % 0.0-5.0 42 Basophil 1.1 % 0.0-4.0 42 Abs Neutrophils 4.0 K/uL 2.1-8.0 42 Abs Lymphocytes 1.1 K/uL 0.8-5.5 42 Abmon 0.4 K/uL 0.1-1.0 42 Abs Eosinophils 0.2 K/uL 0.0-0.5 42 Abs Basophils 0.1 K/uL 0.0-0.3 42 Laboratory test finding 04/09/2014 % Baso. 0.9 % 0.0-2.0 % Eos. 3.1 % 0.0-4.0 % Lymph 20 % 20-44 % Culberson 6.3 % 2.0-10.0 % Darian 70 % 50-70 A/G Ratio 1.6 ratio Low 1.6-2.2 Absolute Baso. 0.1 K/ul 0.0-0.3 Absolute Eos. 0.2 K/ul 0.0-0.5 Absolute Lymph. 1.2 K/ul 0.8-4.8 Absolute Culberson. 0.4 K/ul 0.1-1.0 Absolute Darian. 4.31 K/ul 2.05-7.63 Albumin 4.2 g/dL 3.5-5.0 Alk. Phos. 142.0 U/L High 30.0-126.0 Alt 17.0 U/L 9.0-52.0 Anion Gap 7.0 mmol/L Low 10.0-20.0 Ast 26.0 U/L 14.0-36.0 BUN 12.0 mg/dL 7.0-18.0 BUN/Creat Ratio 13.3 ratio 12.0-20.0 Calcium 9.7 mg/dL 8.7-10.5 Chloride 102.0 mmol/L 98.0-107.0 Co2 30.0 mmol/L 22.0-30.0 Creatinine-Serum 0.9 mg/dL 0.7-1.2 Globulin 2.7 g/dL 2.7-4.3 Glucose 90.0 mg/dL 75.0-110.0 HCT 41.0 % 37.0-51.0 HGB 13.6 Gm/dl 12.0-16.0 MCH 29.6 pg 26.0-32.0 MCHC 33.3 g/dL 31.0-36.0 MCV 89.0 Fl 80.0-97.0 MPV 6.5 fL 6.0-10.0 Magnesium 2.2 1.7-2.3 PLT 242 K/ul 140-440 Potasium 4.7 mmol/L 3.6-5.0 RBC 4.6 M/ul 4.2-6.3 RDW 13.9 % 11.5-14.5 Sodium 139.0 mmil/L 137.0-145.0 Total Bilirubin 0.4 mg/dL 0.2-1.3 Total Protein 6.9 g/dL 6.3-8.2 Vitamin D 46.2 ng/mL 30.0-100.0 WBC 6.1 K/ul 4.1-10.9 eGFR 70.0 mi/minper1.73 45 Laboratory test finding 04/13/2013 % Baso. 1.0 % 0.0-2.0 % Eos. 4.9 % High 0.0-4.0 % Lymph 22 % 20-44 % Culberson 7.9 % 2.0-10.0 % Darian 65 % 50-70 A/G Ratio 1.7 ratio 1.6-2.2 Absolute Baso. 0.0 K/ul 0.0-0.3 Absolute Eos. 0.2 K/ul 0.0-0.5 Absolute Lymph. 1.1 K/ul 0.8-4.8 Absolute Culberson. 0.4 K/ul 0.1-1.0 Absolute Darian. 3.10 K/ul 2.05-7.63 Albumin 4.0 g/dL 3.5-5.0 Alk. Phos. 134.0 U/L High 30.0-126.0 Alt 14.0 U/L 9.0-52.0 Anion Gap 11.0 mmol/L 10.0-20.0 Ast 22.0 U/L 14.0-36.0 BUN 15.0 mg/dL 7.0-18.0 BUN/Creat Ratio 16.7 ratio 12.0-20.0 Calcium 9.4 mg/dL 8.7-10.5 Chloride 103.0 mmol/L 98.0-107.0 Co2 26.0 mmol/L 22.0-30.0 Creatinine-Serum 0.9 mg/dL 0.7-1.2 Globulin 2.4 g/dL Low 2.7-4.3 Glucose 87.0 mg/dL 75.0-110.0 HCT 40.9 % 37.0-51.0 HGB 12.9 Gm/dl 12.0-16.0 MCH 29.0 pg 26.0-32.0 MCHC 31.6 g/dL 31.0-36.0 MCV 91.8 Fl 80.0-97.0 MPV 6.7 fL 6.0-10.0 Magnesium 1.9 mg/dL 1.7-2.3 46 PLT 276 K/ul 140-440 Potasium 4.3 mmol/L 3.6-5.0 RBC 4.5 M/ul 4.2-6.3 RDW 13.1 % 11.5-14.5 Sodium 140.0 mmil/L 137.0-145.0 Total Bilirubin 0.4 mg/dL 0.2-1.3 Total Protein 6.4 g/dL 6.3-8.2 Vitamin D 46.4 ng/mL 30.0-100.0 WBC 4.8 K/ul 4.1-10.9 eGFR 66.5 mi/minper1.73 47 Laboratory test finding 04/18/2012 A/G Ratio 1.2 1.0-2.2 Absolute Basophils 0.046 K/ul 0.0-0.3 Absolute Eosinophils 0.134 K/ul 0.0-0.5 Absolute Lymphocytes 1.34 K/ul 0.8-4.8 Absolute Monocytes 0.422 K/ul 0.1-1.0 Absolute Neutrophils 3.10 K/ul 2.05-7.63 Albumin 3.9 g/dL 3.5-5.0 Alkaline Phosphatase 132 U/L High 30-126 Alt 27 U/L 9-52 Ast 32 U/L 14-36 BUN 11 mg/dL 7-18 BUN/CR Ratio 13.0 Ratio 12-20 Basophil 0.9 % 0-2 Calcium 9.4 mg/dL 8.7-10.5 Carbon Dioxide 28 mmol/L 22-30 Chloride 98 mmol/L 98-107 Creatinine, Serum 0.8 mg/dL 0.7-1.2 Eosinophil 2.7 % 0-4 Globulin 3.3 g/dL 2.7-4.3 Glucose 76 mg/dL 65-105 Hematocrit 42.9 % 37.0-51.0 Hemoglobin 13.2 GM/dl 12.0-16.0 Lymphocytes 26.6 % 20-44 MCH 27.3 pg 26.0-32.0 MCHC 30.8 g/dL Low 31.0-36.0 MCV 89 FL 80-97 Magnesium 2.2 mg/dL 1.7-2.3 Monocytes 8.4 % 2-10.0 Neutrophils 61.4 % 50-70 Platelet Count 245 K/ul 140-440 Potassium 4.6 mmol/L 3.6-5.0 RBC 4.84 M/ul 4.2-6.3 RDW 13.9 % 11.5-14.5 Sodium 137 mmol/L 137-145 Total Bilirubin 0.7 mg/dL 0.2-1.3 Total Protein 7.2 g/dL 6.3-8.2 Vitamin D,25-Hydroxy 37.3 ng/mL 30.0-100.0 48 WBC 5.0 K/ul 4.1-10.9 Laboratory test finding 06/02/2010 Absolute Basophils 0.034 K/ul 0.0-0.3 49 Absolute Eosinophils 0.262 K/ul 0.0-0.5 49 Absolute Lymphocytes 1.03 K/ul 0.8-4.8 49 Absolute Monocytes 0.460 K/ul 0.1-1.0 49 Absolute Neutrophils 3.95 K/ul 2.05-7.63 49 Anion Gap 12 mmol/L 10-20 49 BUN 10 mg/dL 7-18 49 BUN/CR Ratio 12.6 Ratio 12-20 49 Basophil 0.6 % 0-2 49 Calcium 9.6 mg/dL 8.7-10.5 49 Carbon Dioxide 29 mmol/L 22-30 49 Chloride 101 mmol/L 98-107 49 Creatinine, Serum 0.8 mg/dL 0.7-1.2 49 Eosinophil 4.6 % High 0-4 49 Esr (Sed Rate/Westergren) 17 SEC 0-25 49 Glucose 66 mg/dL 65-105 49 Hematocrit 41.4 % 37.0-51.0 49 Hemoglobin 14.1 GM/dl 12.0-16.0 49 Lymphocytes 17.9 % Low 20-44 49 MCH 29.0 pg 26.0-32.0 49 MCHC 34.0 g/dL 31.0-36.0 49 MCV 85 FL 80-97 49 Monocytes 8.0 % 2-10.0 49 Neutrophils 68.9 % 50-70 49 Platelet Count 281 K/ul 140-440 49 Potassium 4.4 mmol/L 3.6-5.0 49 RBC 4.85 M/ul 4.2-6.3 49 RDW 12.2 % 11.5-14.5 49 Rheumatoid Factor Screen Negative Negative 49, 50 Sodium 138 mmol/L 137-145 49 WBC 5.7 K/ul 4.1-10.9 49 Antinuclear Abs Ifa 06/02/2010 Antinuclear Antibodies, Ifa See patterns . 49, 51 Homogeneous Pattern 1:160 High . 49 Note See Note 49, 52 Speckled Pattern 1:160 High . 49 Laboratory test finding 05/06/2008 BUN 14 mg/dL 5-23 Creatinine 0.8 mg/dL 0.5-1.4 1 Clinical Guidelines for recommended serum 25(OH)Vitamin D Deficient at less than 20 ng/mL Insufficient at 20 to <30 ng/mL Sufficient at 30-100 ng/mL Toxicity at greater than 100 ng/mL 2 Updated reference range on new analyzer 3 Updated reference range on new analyzer 4 Concerning GFR Guidelines: Normal function or mild renal disease, if clinically at risk: >/=60 mL/min Moderately decreased: 30-59 Severely decreased: 15-29 Renal failure: <15 Glomerular Filtration Rate (GFR) is estimated based on the MDRD equation, which assumes a steady state for creatinine as recommended by the National Kidney Disease Education Program in conjunction with the National Institutes of Health and the National Kidney Foundation. Clinical conditions in which it may be necessary to measure GFR by using clearance methods include extremes of age and body size, severe malnutrition or obesity, diseases of skeletal muscle, paraplegia or quadriplegia, vegetarian diet, rapidly changing kidney function, and calculation of the dose of potentially toxic drugs that are excreted by the kidneys. 5 Concerning GFR Guidelines for Americans: Normal function or mild renal disease, if clinically at risk: >/=60 mL/min Moderately decreased: 30-59 Severely decreased: 15-29 Renal failure: <15 6 Updated Reference Range 2-2017 7 COPD EXACERBATION AND PNA 8 SITTING UP IN BED 9 Note: Persistent reduction for 3 months or more in an eGFR <60 mL/min/1.73 m2 defines CKD. Patients with eGFR values >/=60 mL/min/1.73 m2 may also have CKD if evidence of persistent proteinuria is present. The original MDRD equation for estimated GFR is not valid for patients less than 18 years of age. Additional information may be found at [email or web address]. 10 Note: Persistent reduction for 3 months or more in an eGFR <60 mL/min/1.73 m2 defines CKD. Patients with eGFR values >/=60 mL/min/1.73 m2 may also have CKD if evidence of persistent proteinuria is present. The original MDRD equation for estimated GFR is not valid for patients less than 18 years of age. Additional information may be found at [email or web address]. 11 Performed at: [facility] [address] [id number] Warehouse Shipper: Reanna Diaz MD, Phone: [phone] Performed at: [address] [id number] Warehouse Shipper: Wali Diane MD, Phone: [phone] Performed at: [facility] [address] [id number] Warehouse Shipper: Reanna Diaz MD, Phone: [phone] Performed at: [address] [id number] Warehouse Shipper: Wali Diane MD, Phone: [phone] 13 Note: Persistent reduction for 3 months or more in an eGFR <60 mL/min/1.73 m2 defines CKD. Patients with eGFR values >/=60 mL/min/1.73 m2 may also have CKD if evidence of persistent proteinuria is present. The original MDRD equation for estimated GFR is not valid for patients less than 18 years of age. Additional information may be found at [email or web address]. 14 SITTING UP IN BED 15 SITTING UP IN BED 16 SITTING UP IN BED 17 Legionella Species Culture Report: No Legionella species isolated. Performed at: RN - [facility] [address] [id number] Warehouse Shipper: Reanna Diaz MD, Phone: [phone] 18 Note: Persistent reduction for 3 months or more in an eGFR <60 mL/min/1.73 m2 defines CKD. Patients with eGFR values >/=60 mL/min/1.73 m2 may also have CKD if evidence of persistent proteinuria is present. The original MDRD equation for estimated GFR is not valid for patients less than 18 years of age. Additional information may be found at [email or web address]. 19 NO GROWTH: FINAL REPORT 20 NO GROWTH: FINAL REPORT 21 POSSIBLE BLOD CLOT IN LUNG 22 Specimen Hemolyzed, interpret with caution 23 THERAPEUTIC INR RANGE: 2.0 - 3.0 DVT, Pulmonary embolus, prophylaxis against venous thrombosis or systemic embolization in high risk patients. 2.5 - 3.5 Mechanical heart valves 24 LARGE PLATELETS PRESENT. 25 0.0 - 0.045 ng/mL: Normal 0.046 - 0.5 ng/mL: Suggestive 0.6 - 1.5 ng/mL: Consistent 26 Note: Persistent reduction for 3 months or more in an eGFR <60 mL/min/1.73 m2 defines CKD. Patients with eGFR values >/=60 mL/min/1.73 m2 may also have CKD if evidence of persistent proteinuria is present. The original MDRD equation for estimated GFR is not valid for patients less than 18 years of age. Additional information may be found at [email or web address]. 27 COPD EXACERBATION AND PNA 28 NO GROWTH: FINAL REPORT 29 NO GROWTH: FINAL REPORT 30 POSSIBLE BLOOD CLOT IN LUNG 31 COPD EXACERBATION AND PNA 32 Presumptive negative for L. pneumophila serogroup 1 antigen in urine, suggesting no recent or current infection. Legionnaires' disease cannot be ruled out since other serogroups and species may also cause disease. 33 schedule 1 week prior to next visit 34 Updated reference range on new analyzer 35 Updated reference range on new analyzer 36 Concerning GFR Guidelines: Normal function or mild renal disease, if clinically at risk: >/=60 mL/min Moderately decreased: 30-59 Severely decreased: 15-29 Renal failure: <15 Glomerular Filtration Rate (GFR) is estimated based on the MDRD equation, which assumes a steady state for creatinine as recommended by the National Kidney Disease Education Program in conjunction with the National Institutes of Health and the National Kidney Foundation. Clinical conditions in which it may be necessary to measure GFR by using clearance methods include extremes of age and body size, severe malnutrition or obesity, diseases of skeletal muscle, paraplegia or quadriplegia, vegetarian diet, rapidly changing kidney function, and calculation of the dose of potentially toxic drugs that are excreted by the kidneys. 37 Concerning GFR Guidelines for Americans: Normal function or mild renal disease, if clinically at risk: >/=60 mL/min Moderately decreased: 30-59 Severely decreased: 15-29 Renal failure: <15 38 Updated reference range on new analyzer 39 SCHEDULE 1 WEEK PRIOR TO NEXT VISIT Fastin hours SCHEDULE 1 WEEK PRIOR TO NEXT VISIT Fastin hours SCHEDULE 1 WEEK PRIOR TO NEXT VISIT Fastin hours Fastin hours Fastin hours 40 Concerning GFR Guidelines: Normal function or mild renal disease, if clinically at risk: >/=60 mL/min Moderately decreased: 30-59 Severely decreased: 15-29 Renal failure: <15 Glomerular Filtration Rate (GFR) is estimated based on the MDRD equation, which assumes a steady state for creatinine as recommended by the National Kidney Disease Education Program in conjunction with the National Institutes of Health and the National Kidney Foundation. Clinical conditions in which it may be necessary to measure GFR by using clearance methods include extremes of age and body size, severe malnutrition or obesity, diseases of skeletal muscle, paraplegia or quadriplegia, vegetarian diet, rapidly changing kidney function, and calculation of the dose of potentially toxic drugs that are excreted by the kidneys. 41 Concerning GFR Guidelines for Americans: Normal function or mild renal disease, if clinically at risk: >/=60 mL/min Moderately decreased: 30-59 Severely decreased: 15-29 Renal failure: <15 42 SCHEDULE 1 WEEK PRIOR TO NEXT VISIT 43 Concerning GFR Guidelines: Normal function or mild renal disease, if clinically at risk: >/=60 mL/min Moderately decreased: 30-59 Severely decreased: 15-29 Renal failure: <15 Glomerular Filtration Rate (GFR) is estimated based on the MDRD equation, which assumes a steady state for creatinine as recommended by the National Kidney Disease Education Program in conjunction with the National Institutes of Health and the National Kidney Foundation. Clinical conditions in which it may be necessary to measure GFR by using clearance methods include extremes of age and body size, severe malnutrition or obesity, diseases of skeletal muscle, paraplegia or quadriplegia, vegetarian diet, rapidly changing kidney function, and calculation of the dose of potentially toxic drugs that are excreted by the kidneys. 44 Concerning GFR Guidelines for Americans: Normal function or mild renal disease, if clinically at risk: >/=60 mL/min Moderately decreased: 30-59 Severely decreased: 15-29 Renal failure: <15 45 For -[place] patients multiply result by 1.180 46 FASTING SCHEDULE 1 WEEK PRIOR TO NEXT VISIT 47 For -[place] patients multiply result by 1.180 48 Vitamin D deficiency has been defined by the [place] of Medicine and an Endocrine Society practice guideline as a level of serum 25-OH vitamin D less than 20 ng/mL (1,2). The Endocrine Society went on to further define vitamin D insufficiency as a level between 21 and 29 ng/mL (2). 1. IOM ([place] of Medicine). 2010. Dietary reference intakes for calcium and D. [place]: The National Academies Press. 2. Joy MF, Juma NC, Thuan SAEED, et al. Evaluation, treatment, and prevention of vitamin D deficiency: an Endocrine Society clinical practice guideline. JCEM. 2010; 96(7):1911-30. Performed at: RN - [facility] [address] [id number] Warehouse Shipper: Reanna Diaz MD, Phone: [phone] FASTING 50 FASTING QUERY: @EMR Pat ID: QUERY: @[email or web address] Req #: 51 Negative <1:80 Borderline 1:80 Positive >1:80 52 A positive GARY result may occur in healthy individuals or be associated with a variety of diseases. See interpre- tation below: Pattern Antigen Detected Suggested Disease Association Homogeneous DNA(ds,ss,), High titers - SLE ( Smooth) Histone Speckled Sm, EVENT MANAGEMENT CONSULTANT, SCL-70, SLE,MCTD,Scleroderma,Sjogrens SS-A/SS-B ---- Nucleolar SCL-70, PM-1/SCL High titers Scleroderma Poly- myositis/Scleroderma Overlap Centromere Centromere PSS w/Crest syndrome variable Performed at: [facility] [address] [id number] Warehouse Shipper: Jadon Hewitt MD, Phone: [phone] Procedures Date CPT Code Description Status 04/25/2018 57794 Measure Blood Oxygen Level Single Determination Completed 03/30/2018 74441 Measure Blood Oxygen Level Single Determination Completed 03/22/2018 57560 Measure Blood Oxygen Level Single Determination Completed 03/22/2018 52460 Electrocardiogram Complete Completed 03/16/2018 46382 Measure Blood Oxygen Level Single Determination Completed 02/21/2018 29481 Measure Blood Oxygen Level Single Determination Completed 01/24/2018 09180 Measure Blood Oxygen Level Single Determination Completed 10/03/2017 19458 X-Ray Hand Three Views Completed 04/25/2017 31661 X-Ray Chest Two Views Frontal & Lateral Completed 04/16/2016 40052 X-Ray Chest Two Views Frontal & Lateral Completed 03/18/2016 74382 X-Ray Chest Two Views Frontal & Lateral Completed 03/18/2016 48456 Admin Of Inj (Therapeutic Phrophylactic Or Diagnostic Completed Subq Inj 03/09/2016 39112 Measure Blood Oxygen Level Single Determination Completed 03/18/2015 04368 Measure Blood Oxygen Level Single Determination Completed 01/09/2013 90845 Measure Blood Oxygen Level Single Determination Completed 01/19/2012 11616 Measure Blood Oxygen Level Single Determination Completed 07/26/2011 14435 Measure Blood Oxygen Level Single Determination Completed 06/22/2011 94619 Measure Blood Oxygen Level Single Determination Completed 06/08/2011 87840 Measure Blood Oxygen Level Single Determination Completed 05/29/2010 86996 Visual Screening Test Completed 05/26/2010 10318 Visual Screening Test Completed 05/01/2008 46308 Measure Blood Oxygen Level Single Determination Completed Encounters Type Date Location Provider CPT E/M Dx Office Visit 03/30/2018 11:30a [facility] [place] [address] J44.1 Z68.25 Office Visit 03/22/2018 2:00p [place] [address] R06.02 R00.0 Z68.25 Office Visit 03/16/2018 1:00p [place] [address] R05 Z68.25 Office Visit 02/21/2018 11:00[place] [address] G43.909 J44.1 Z68.25 Office Visit 01/24/2018 10:00a [facility] [place] [address] S20.211A G43.909 R41.0 Office Visit 12/19/2017 1:00[place] [address] J44.1 R03.0 Office Visit 10/26/2017 1:15p [place] [address] J44.9 G43.909 E55.9 E83.40 K21.9 Office Visit 10/03/2017 3:15p [place] [address] S60.221A Office Visit 09/20/2017 1:00p [facility] [place] [address] S00.83xD S05.8x1D Office Visit 07/12/2017 1:30p [facility] Missael Lala [address] Z01.818 H25.20 G43.909 E55.9 E83.40 K21.9 R51 J44.9 Office Visit 05/24/2017 11:00a [facility] [place] [address] S52.531A Office Visit 04/25/2017 11:15a [facility] [place] [address] G43.909 E55.9 E83.40 K21.9 R51 J44.9 Z00.00 Z68.26 Office Visit 10/21/2016 9:45a [facility] [place] [address] E83.40 K21.9 R51 J44.9 G43.909 E55.9 Z23 Office Visit 04/28/2016 9:30a [facility] [place] [address] G43.909 E83.40 K21.9 R51 J44.9 Office Visit 03/18/2016 4:00p [facility] [place] [address] J44.1 Office Visit 03/09/2016 9:30a [facility] [place] [address] J06.9 Office Visit 10/22/2015 10:15a [facility] Hali LalaDO nagi [address] G43.909 E55.9 E83.40 K21.9 R51 Z23 J20.9 Office Visit 04/21/2015 1:00p [facility] [place] [address] 346.90 268.9 275.2 530.81 784.0 Office Visit 03/18/2015 1:00p [facility] [place] [address] 465.9 Office Visit 10/21/2014 10:00a [facility] [place] [address] 346.90 268.9 275.2 530.81 Plan of Care Future Appointment(s):10/27/2018 11:00 am - Kizzy Pinzon NP at [facility]04/25 - Kizzy Pnizon NPZ00.00 Encntr for general adult medical exam w/ o abnormal findingsComments:Depression screen:upon review of signs and symptoms with exam assessment pt appears stableFunctionalcapacity and daily living skills : upon review of signs and symptoms through direct questioning, pt appears stable and adequately safe to continue in her current living situation.Screening for breast cancer: refusesScreening for colon cancer: refusesAnnual flu vax. recommended. Encouraged healthy dietEncouraged daily exercise 30 - 60 min daily/ or 150,min per week. Encouraged at least 2 qrts water per day with more for sweaty exercise. Target 7-8 hours of sleep at night. Recommend under 1 alcoholicdrink per day and avoid smoking. Was given Health Care Proxy paperwork, will complete and return.Recommend ShingrixFollow up:1 yr. for routine f/u and MWE, sooner PRN for illness or okjunjG43.1 Chronic obstructive pulmonary disease w (acute) exacerbationComments:Continue current meds for now.Continue Montelukast.Follow up:6 months for routine f/ uG43.909 Migraine, unsp, not intractable, without status migrainosusComments: Continue current txE83.40 Disorders of magnesium metabolism, unspecifiedComments :Continue supplement and will follow labsE55.9 Vitamin D deficiency, unspecifiedComments:Will continue to follow [id number] Body mass index (BMI ) 24.0-24.9, adultComments:Continue healthy well balanced diet and routine exercise to level of ability
[2018-05-16 18:11] VITALS: BP 171/98
--- NOTE | 2018-05-16 18:31 | ED ---
Hypertension - HPI Summary HPI Summary: 77 yr old female with elevated BP. She has had headaches as well this past 24 hours. The headaches she is having are exactly like she has gotten for years with her migraines. She took sumatriptan at 3am today. She took excedrin migraine at 430 pm. She presently has no headache at all. She had elevated BP while in hospital last month with COPD, and took bp meds until gone. She has been following with her PMD and her BP has been 120s systolic. She had BP elevation at home earlier, and at triage it was elevated. She denies change in vision, speech, hearing, swallowing, denies focal weakness , denies numbness, denies vertigo. She has had no focal deficits at all the past day. - History of Current Complaint Chief Complaint: UCGeneralIllness Stated Complaint: HIGH BLOOD PRESSURE Time Seen by Provider: 05/16/18 18:15 - Allergies/Home Medications Allergies/Adverse Reactions: Allergies Allergy/AdvReac Type Severity Reaction Status Date / Time No Known Allergies Allergy Verified 05/16/18 18:00 Home Medications: Home Medications Tiotropium CAP.INH* [Spiriva CAP.INH*] 1 cap.inh INH DAILY 05/16/18 [History Confirmed 05/16/18] PMH/Surg Hx/FS Hx/Imm Hx Respiratory History: Reports: Hx Chronic Obstructive Pulmonary Disease (COPD) Infectious Disease History: No Infectious Disease History: Denies: Traveled Outside the [place] in Last 30 Days - Family History Known Family History: Positive: None - Social History Occupation: Retired Alcohol Use: None Substance Use Type: Reports: None Smoking Status (MU): Former Smoker Review of Systems Constitutional: Negative Negative: Photophobia, Blurred Vision, Diplopia Negative: Chest Pain Negative: Shortness Of Breath Positive: Headache. Negative: Weakness, Paresthesia, Numbness, Syncope, Slurred Speech All Other Systems Reviewed And Are Negative: Yes Physical Exam Triage Information Reviewed: Yes Vital Signs On Initial Exam: Initial Vitals Temp Pulse Resp BP Pulse Ox 97.1 F 84 24 171/98 99 05/16/18 18:03 05/16/18 18:03 05/16/18 18:03 05/16/18 18:03 05/16/18 18:03 Vital Signs Reviewed: Yes Appearance: Positive: Well-Appearing, No Pain Distress Skin: Positive: Warm, Skin Color Reflects Adequate Perfusion Head/Face: Positive: Normal Head/Face Inspection. Negative: Temporal Artery Tenderness Eyes: Positive: EOMI, MELVIN ENT: Positive: Normal ENT inspection Neck: Positive: Supple, Nontender. Negative: Nuchal Rigidity Respiratory/Lung Sounds: Positive: Clear to Auscultation, Breath Sounds Present Cardiovascular: Positive: RRR. Negative: Murmur Abdomen Description: Negative: Distended Musculoskeletal: Positive: Strength/ROM Intact Neurological: Positive: Sensory/Motor Intact, Alert, Oriented to Person Place, Time, CN Intact II-III, Normal Gait, Speech Normal. Negative: Disoriented Psychiatric: Positive: Normal - Raymond Coma Scale Best Eye Response: 4 - Spontaneous Best Motor Response: 6 - Obeys Commands Best Verbal Response: 5 - Oriented Coma Scale Total: 15 Diagnostics - Vital Signs Vital Signs Temp Pulse Resp BP Pulse Ox 05/16/18 18:03 97.1 F 84 24 171/98 99 - Laboratory Lab Statement: Any lab studies that have been ordered have been reviewed, and results considered in the medical decision making process. Hypertension Course/Dx - Course Course Of Treatment: 77 yr old with elevated BP and feels completely fine now. Non focal neuro exam. and headache completely gone and a typical headache for her. She has been recommended to go to the ER for further monitoring and work up. She states she is not going, but will monitor bp at home and follow up with PMD in the morning. - Diagnoses Provider Diagnoses: Hypertension, Headache Discharge - Sign-Out/Discharge Documenting (check all that apply): Patient Departure - Discharge Plan Condition: Good Disposition: HOME-RECOMMEND TO ED Patient Education Materials: Hypertension (ED), Acute Headache (ED) Referrals: Kizzy Pinzon [Primary Care Provider] - 1 Day Additional Instructions: You should go to the ER upon leaving here for further evaluation, monitoring and work up. - Billing Disposition and Condition Condition: GOOD Disposition: Home-Recommend to ED
== END 2018-05-16 18:31 | disposition home health service (06) ==
LOC: UCCORT 17:43
DX: I10 Essential (primary) hypertension (principal); G43.909 Migraine, unspecified, not intractable, without status migrainosus; J44.9 Chronic obstructive pulmonary disease, unspecified; Z87.891 Personal history of nicotine dependence
CPT/HCPCS: 99202; G0463